=== PATIENT | female | born 1985 | race Caucasian/White ===

== ENCOUNTER 2018-02-22 12:18 | Inpatient (IN) | payer BC ==
[~2018-02-22] VITALS: Ht 167.6 cm; Wt 77.0 kg
--- NOTE | ~2018-02-22 | OR ---
[facility] [address], [place] [address] Draft DATE OF OPERATION: 03/29/2018 SURGEON: Trudi Price MD SLACK LINE YARDER: Dr. Baker. PREOPERATIVE DIAGNOSIS: Term , previous section, breech presentation. POSTOPERATIVE DIAGNOSIS: Term , previous section, breech presentation, delivered. PROCEDURE: Repeat section with low-segment transverse uterine incision. ANESTHESIA: Spinal. ESTIMATED BLOOD LOSS: 500 mL. DRAINS: Lowry catheter. INDICATIONS AND FINDINGS: The patient is a 32-year-old female, 2, para 1, admitted at 39 weeks for repeat section. Her has been complicated by kidney stones and she had a stent placed in the left kidney and ureter approximately two weeks ago. At the time of delivery, she was delivered of a little boy as a en breech from lower segment transverse uterine incision with Apgars of 9 and 9, and weight of 7 pounds 11 ounces. There were some adhesions of the bladder over the anterior wall of the uterus, but otherwise the tubes, ovaries, placenta and uterus appeared normal. DESCRIPTION OF PROCEDURE: The patient was prepped and draped in the supine position. The previous scar was excised sharply with a knife and the incision carried down to the fascia. The fascia was scored and incision extended laterally. The inferior and superior fascial flaps were then created. The muscles were bluntly divided and the peritoneum opened bluntly and the incision extended superiorly and inferiorly. The adhesions overlying the uterus PATIENT NAME: ALIDA KEENE OPERATIVE REPORT DATE OF : 85 REPORT #: [id number] PHYSICIAN: TRUDI PRICE MD PCP: TRUDI PRICE MD REPORT IS CONFIDENTIAL AND NOT TO BE RELEASED WITHOUT AUTHORIZATION [facility] [address], [place] [address] Draft was then incised sharply. The Tristen retractor was then placed. The uterine hoover was then scored and entered with the above findings and the baby handed off to the pediatric staff in attendance. The placenta was removed manually and the uterus explored with a lap tape assuring no remaining fragments. The edges of the incision were identified and the uterus closed in 2 layers using 0 Monocryl. The first layer was a running locking stitch and second was a vertical imbricating stitch. Bleeding points were controlled with cautery. The abdomen was then copiously irrigated, inspected, and it appeared to be hemostatic. The retractors were removed and peritoneum identified. An ACell graft was then laid over the lower segment to aid in healing. The peritoneum was then identified and closed with a running suture of 3-0 Vicryl. The muscles were brought together with interrupted sutures of 0 Vicryl. Bleeding points were controlled with cautery. ACell powder was sprinkled over the muscles to aid in healing. The fascia was then closed from each angle to the midline with a running suture of 0 Vicryl. The subcutaneous tissue was irrigated and bleeding points controlled with cautery. Interrupted sutures of 3-0 Vicryl placed in the subcu space. The skin incision was closed with marcelle. All sponge and needle counts were correct. She tolerated procedure well and was taken to the recovery room in good condition. Trudi Price MD PJW/MODL /[id number] cc: Dr. Baker Copies: ~ PATIENT NAME: ALIDA KEENE OPERATIVE REPORT DATE OF : 85 REPORT #: [id number] PHYSICIAN: TRUDI PRICE MD PCP: TRUDI PRICE MD REPORT IS CONFIDENTIAL AND NOT TO BE RELEASED WITHOUT AUTHORIZATION
--- NOTE | 2018-03-29 08:21 | NUR ---
03/29/18 0821 Lashon Linton 0809 PATIENT ARRIVES TO ROOM FROM OR AWAKE, SPOUSE WITH BABY AT BEDSIDE. RESP EVEN AND UNLABORED, ON ROOM AIR. PATIENT DENIES PAIN, HAS NAUSEA, BEING MEDICATED BY MANAGER STRATEGIC. 0815 BABY TO RIGHT BREAST WITH SHANT JARAMILLO AND DAD AT BEDSIDE. NAUSEA IMPROVING.
[2018-03-30] MEDS ORDERED: PRENATAL 19 TA1 EAC1 PO (03:08)
[2018-03-30] MEDS ORDERED: NORCO 5-325 TA1 EACH PO (03:09)
[2018-03-30] MEDS ORDERED: STOOL SOFTENER1 EAC2 PO (03:10)
[2018-03-30] MEDS ORDERED: POTASSIUM CITRA5 MEQ PO (03:11)
[2018-03-30] MEDS ORDERED: IRON160 MG PO (03:12)
--- NOTE | 2018-03-30 07:22 | PR ---
[facility] [address] [facility] [place], [place] [address] Signed PP Progress Notes Datetime Report Generated by CPN: 03/30/2018 07:22 SUBJECTIVE: [id number] Pain: Within normal limits Nausea/Vomiting: Denies Flatus: Yes Vital Signs: [id number] Vital Signs: Reviewed; Within Normal Limits EXAM: [id number] Cardiovascular: Normal Respiratory: Normal Abdomen/Uterus: Abnormal Lochia: Normal Vulva/Perineum: Not Done Breasts: Not Done CVA Tenderness: Not Done Extremities: Normal Incision: Normal Progress: Normal Exam Comments: Abdomen with active BS. Fundus firm, NT @ U-1. H/H 10.6/30.9, WBC 14.3, plat 199k IMPRESSION/PLAN/PROCEDURES: [id number] Impression: Normal progression Other Plans: Ambulate, shower, UroCT Other Procedures: UroCT Progress Notes: Doing well. Will arrange for uro CT today. Signing Physician: Trudi Price MD Copies: ~ *Electronically Signed* 03/30/18 0722 TRUDI PRICE MD PATIENT NAME: ALIDA KEENE PROGRESS NOTE DATE OF : 85 PHYSICIAN: TRUDI PRICE MD RPT #: [id number] REPORT IS CONFIDENTIAL AND NOT TO BE RELEASED WITHOUT AUTHORIZATION
--- NOTE | 2018-03-31 07:34 | PR ---
[facility] [address] [facility] [place], [place] [address] Signed PP Progress Notes Datetime Report Generated by CPN: 03/31/2018 07:33 SUBJECTIVE: [id number] Pain: Within normal limits Pain Comments: Stent pain much improved since delivery Nausea/Vomiting: Denies Flatus: Yes Bowel Movement: Yes Vital Signs: [id number] Vital Signs: Reviewed; Within Normal Limits EXAM: [id number] Cardiovascular: Not Done Respiratory: Not Done Abdomen/Uterus: Abnormal Lochia: Normal Vulva/Perineum: Not Done Breasts: Not Done CVA Tenderness: Not Done Extremities: Normal Incision: Normal Progress: Normal Exam Comments: Abdomen with active BS. Fundus firm, NT @ U-2. UroCT with bilat kidney stones, right ureteral stones, right ureteral stent IMPRESSION/PLAN/PROCEDURES: [id number] Impression: Normal progression Plan: Remove marcelle; Discharge Other Plans: Ambulate, shower, UroCT Other Procedures: UroCT Progress Notes: Doing well. She is ready for D/C. Signing Physician: Trudi Price MD Copies: ~ *Electronically Signed* 03/31/18 0733 TRUDI PRICE MD PATIENT NAME: ALIDA KEENE PROGRESS NOTE DATE OF : 85 PHYSICIAN: TRUDI PRICE MD RPT #: [id number] REPORT IS CONFIDENTIAL AND NOT TO BE RELEASED WITHOUT AUTHORIZATION
== END 2018-03-31 10:10 | disposition home or self-care (01) | DRG 766 ==
LOC: FBC 03-29 05:01
PROVIDERS: ADMIT Obstetrics & Gynecology
PROC: 10D00Z1 Extraction of Products of Conception, Low, Open Approach (ICD-10-PCS; principal; 2018-03-29 06:45)
DX: O34.211 Maternal care for low transverse scar from previous cesarean delivery (principal); N85.8 Other specified noninflammatory disorders of uterus; O99.344 Other mental disorders complicating childbirth; F41.9 Anxiety disorder, unspecified; O99.89 Other specified diseases and conditions complicating pregnancy, childbirth and the puerperium; N20.0 Calculus of kidney; Z79.899 Other long term (current) drug therapy; Z96.0 Presence of urogenital implants; Z3A.39 39 weeks gestation of pregnancy; Z37.0 Single live birth
CPT/HCPCS: 01961; 36415; 74176; 85027; C1763; J1170; J2274; J2370; J2405; J2550; J2590; J2765; J7120

== ENCOUNTER 2018-03-14 11:29 | Day surgery (SDC) | payer BC ==
--- NOTE | ~2018-03-14 | OR ---
[facility] [address], [place] [address] Draft DATE OF OPERATION: 03/14/2018 SURGEON: Mayra Alfred MD PREOPERATIVE DIAGNOSIS: Right ureteral obstruction due to presumed proximal ureteral calculus in a female. POSTOPERATIVE DIAGNOSIS: Right ureteral obstruction due to presumed proximal ureteral calculus in a female. NAME OF PROCEDURE: Diagnostic cystoscopy with right ureteral stent insertion. ANESTHESIA: Epidural. ESTIMATED BLOOD LOSS: None. COMPLICATIONS: None. SPECIMENS: None. DRAINS: A 5 x 26 cm contour double-J ureteral stent inserted into the right ureter. INDICATIONS FOR PROCEDURE: Ms. Adair is a very pleasant 32-year-old female with a history of nephrolithiasis, who presented to Dr. Trudi Price earlier today with a 2-3 day history of severe intermittent right-sided flank pain along with nausea and vomiting. Her renal ultrasound was performed, which revealed no evidence of ureteral jet on the right side along with the presence of what appeared to be multiple stones in the proximal to mid right ureter. Her urinalysis and CBC were pending at the time. I was contacted by Dr. Trudi Price, who requested for the patient to be evaluated given her obvious obstructive uropathy on the right side. After examining the patient, and the ultrasound, I determined the need for immediate placement of a ureteral stent on the PATIENT NAME: ALIDA ADAIR OPERATIVE REPORT DATE OF : 85 REPORT #: [id number] PHYSICIAN: MAYRA ALFRED MD PCP: NO PRIMARY CARE PHYSICIAN REPORT IS CONFIDENTIAL AND NOT TO BE RELEASED WITHOUT AUTHORIZATION [facility] [address] [place], [place] [address] Draft right side for decompression of the right collecting system. After a discussion of the risks and benefits of the procedure including the risk of labor and damage to the ureter, the patient has agreed to undergo cystoscopy with insertion of a right ureteral stent for decompression of the right collecting system. FINDINGS: 1. On cystoscopy, there was no evidence of any suspicious masses, lesions, or stones. Bilateral ureteral orifices are in their normal anatomic location. The left ureteral orifice is effluxing clear urine. There is no evidence of urine efflux on the right side. The patient's bladder wall is diffusely erythematous, consistent with some chronic bladder irritation, however, the patient does not complain of any irritative bladder symptoms. 2. A 5 x 26 cm contour double-J ureteral stent was inserted into the right ureter under direct visualization without difficulty. A snapshot picture confirmed the adequate placement of the right proximal coil into the right renal pelvis. DESCRIPTION OF PROCEDURE: After informed consent was obtained, the patient was taken back to the operating room. She was transferred from the [facility] to the operating room table, where epidural anesthesia was induced. She was placed in the dorsal lithotomy position and her genitalia prepped and draped in sterile fashion. Using a 30-degree lens on a 22-Vietnamese introducer, rigid cystoscope was inserted through the urethra into her bladder under direct visualization. Panendoscopic views of the bladder were then obtained. Please see the findings. I focused my attention on the right ureteral orifice. I passed a 0.035 Sensor wire up into the right ureteral orifice and confirmed placement of the wire via one-shot fluoroscopy. Over the wire, I passed a 5 x 26 cm contour double-J ureteral stent into the right ureter under direct visualization without difficulty. Another one shot fluoroscopic image was performed, which confirmed that the stent was going up into the right renal pelvis. When I pulled the wire, one more fluoroscopic picture was taken, which confirmed that the proximal coil was within the right renal pelvis. I was able to appreciate a distal coil within the bladder. The patient's bladder was then drained and the cystoscope was removed. The procedure was then terminated. The patient tolerated the procedure well without any complication. She will now be transferred to the postanesthesia care unit in stable condition. DISPOSITION: I just discussed the details of today's procedure with both the patient and her and answered all of her questions. She will be sent home today with Augmentin 1 tablet p.o. b.i.d. for a total of seven days along with Percocet 5/325 dispense #15 as needed for pain. She will be scheduled to return to my clinic on April 13 to discuss the results of the CT uroabdomen that she will have performed in the last week of March to evaluate her stone burden. Once her baby is successfully delivered. At the time of her PATIENT NAME: ALIDA ADAIR OPERATIVE REPORT DATE OF : 85 REPORT #: [id number] PHYSICIAN: MAYRA ALFRED MD PCP: NO PRIMARY CARE PHYSICIAN REPORT IS CONFIDENTIAL AND NOT TO BE RELEASED WITHOUT AUTHORIZATION [facility] [address] [place], [place] [address] Draft office visit, we will discuss the results of her CT scan and schedule ureteroscopy with stone extraction for definitive management of her stones on the right side. MD CINDY Corea/SASHAL /[id number] Copies: ~ PATIENT NAME: ALIDA ADAIR OPERATIVE REPORT DATE OF : 85 REPORT #: [id number] PHYSICIAN: MAYRA ALFRED MD PCP: NO PRIMARY CARE PHYSICIAN REPORT IS CONFIDENTIAL AND NOT TO BE RELEASED WITHOUT AUTHORIZATION
--- NOTE | ~2018-03-14 | CONS ---
[facility] [address] [place], [place] [address] Draft DATE OF CONSULTATION: 03/14/2018 REASON FOR CONSULTATION: Obstructing right ureterolithiasis in a woman who is 36 weeks and six days . HISTORY OF PRESENTING ILLNESS: Alida is a very pleasant 32-year-old female with a previous history of nephrolithiasis who presented earlier today to be evaluated by Dr. Trudi Price for a 2-3 day history of severe right-sided flank pain, nausea and vomiting. Both her CBC and urinalysis are still pending. She underwent a renal ultrasound, which revealed a cluster of stones located in the proximal right ureter along with a lack of ureteral jet on the right side. The patient has a history of nephrolithiasis and has passed most of her stones on her own, however, she did require ureteral stone extraction by Dr. Garsia approximately four years ago. She is currently taking potassium citrate and calcium per Dr. Garsia's request. She reportedly makes calcium oxalate stones. She denies any fevers, chills, or gross hematuria within the past three days. Dr. Trudi Price had contacted me and requested that I evaluate the patient. REVIEW OF SYSTEMS: Review of systems is positive for severe right-sided flank pain, nausea and vomiting and is negative for fevers, chills, hematuria, chest pain or shortness of air. PAST MEDICAL HISTORY: Significant for nephrolithiasis. PAST SURGICAL HISTORY: 1. section. 2. Tonsillectomy. 3. Previous ureteroscopy with stone extraction around four years ago by Dr. Garsia. MEDICATIONS: The patient takes a vitamin, along with hydrocodone/acetaminophen 5/325 p.r.n. pain, potassium citrate and calcium/unknown dose. ALLERGIES: The patient has no known drug allergies. SOCIAL HISTORY: The patient is , with one young son. 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 FAMILY HISTORY: Noncontributory. PATIENT NAME: ALIDA KEENE CONSULTATION DATE OF : 85 REPORT #: [id number] PHYSICIAN: MAYRA ALFRED MD PCP: NO PRIMARY CARE PHYSICIAN REPORT IS CONFIDENTIAL AND NOT TO BE RELEASED WITHOUT AUTHORIZATION [facility] [address] [place], [place] [address] Draft PHYSICAL EXAMINATION: VITAL SIGNS: The patient is currently afebrile and vitally stable. The baby is currently being monitored and all of her vital signs are within normal limits. GENERAL: On examination, she is alert and oriented and answering all questions appropriately. She does not appear to be in acute distress at this time. CARDIOVASCULAR: Examination reveals a regular rate and rhythm. LUNGS: Clear. ABDOMEN: Gravid and soft. She has right costovertebral tenderness on palpation. She is moving all extremities equally. LABORATORY DATA: The patient's white count and urinalysis are pending. IMAGING: As stated above, the patient underwent an ultrasound around 2 hours ago which revealed both kidneys to have normal cortical thickness and echotexture. The right ureteral jet is not visualized. The ultrasound reveals obstructive uropathy due to a collection of stones in the proximal to mid right ureter. ASSESSMENT: Right obstructing ureterolithiasis in a 36 weeks and six days female. PLAN: The patient has been n.p.o. since this morning. I described the situation in that she has an obstructing stone on the right side, with no obvious evidence of an infectious process at this time. Because her kidney is not draining properly, I will need to insert a stent to force drainage of the right collecting system. We discussed in detail of the risks and benefits of the procedure including the risk of pre-term labor and damage to the ureter and urinary tract infection. She understands these risks and would like to proceed. She has been taken to the OR now in preparation for surgery. MD CINDY Corea/SASHAL /[id number] Copies: PATIENT NAME: ALIDA KEENE CONSULTATION DATE OF : 85 REPORT #: [id number] PHYSICIAN: MAYRA ALFRED MD PCP: NO PRIMARY CARE PHYSICIAN REPORT IS CONFIDENTIAL AND NOT TO BE RELEASED WITHOUT AUTHORIZATION [facility] [address] [facility] [place], [place] [address] Draft ~ PATIENT NAME: ALIDA KEENE CONSULTATION DATE OF : 85 REPORT #: [id number] PHYSICIAN: MAYRA ALFRED MD PCP: NO PRIMARY CARE PHYSICIAN REPORT IS CONFIDENTIAL AND NOT TO BE RELEASED WITHOUT AUTHORIZATION
--- NOTE | 2018-03-14 14:53 | NUR ---
03/14/18 1453 Melvi Chavez 1437 PT ARRIVED IN PACU WIDE AWAKE WITH NO C/O'S. FBC RN PLACED PT ON MONITOR WITH FHT'S 137.
== END 2018-03-14 18:55 | disposition home or self-care (01) ==
LOC: DS 11:29 → DSVR 11:29 → FBC 11:29 → FBCO 11:29 → EDSTATUS 13:11 → DS 18:55
PROVIDERS: Urology
PROC: 0T768DZ Dilation of Right Ureter with Intraluminal Device, Via Natural or Artificial Opening Endoscopic (ICD-10-PCS; principal; 2018-03-14 14:00)
DX: O99.89 Other specified diseases and conditions complicating pregnancy, childbirth and the puerperium (principal); N13.5 Crossing vessel and stricture of ureter without hydronephrosis; Z3A.36 36 weeks gestation of pregnancy; Z87.442 Personal history of urinary calculi; Z98.890 Other specified postprocedural states
CPT/HCPCS: 59025; 76000; 76770; 81001; 85025; 96361; 99213; C2617; J0696; J3105; J7120